=== PATIENT | male | born 1995 | race African-American/Black ===

== ENCOUNTER 2016-09-30 17:54 | Emergency (ER) | payer OTHER, SELFPAY ==
[2016-09-30] MEDS ORDERED: Promethazine HCl 25 MG/ML VIAL ONE (18:22)
[2016-09-30] MEDS ORDERED: Ondansetron ODT 4 MG TAB ONE (18:25)
[2016-09-30] MEDS ORDERED: Loperamide HCl 2 MG CAP ONE (18:25)
== END 2016-09-30 18:51 | disposition home or self-care (01) ==
LOC: NAV ERS 17:54
DX: K52.9 Noninfective gastroenteritis and colitis, unspecified (principal)
CPT/HCPCS: 99283; J2550; Q0162